=== PATIENT | female | born 1965 | race Two or more races ===

== ENCOUNTER → 2019-04-24 | Outpatient (CLI) | payer OTHER ==
[~2019-04-24] MED LIST: ATACAND; COUMADIN; GLIPIZIDE; HUMALOG100 UNIT/1; JANUMET; TRASODONE; TRICOR
== END | disposition home or self-care (01) ==
LOC: RAD 13:04
DX: M79.642 Pain in left hand (principal); M25.532 Pain in left wrist

== ENCOUNTER 2019-06-21 10:26 | Outpatient (CLI) | payer OTHER | END 2019-06-21 10:34 | disposition home or self-care (01) | LOC: RAD 10:26 | DX: M25.512 Pain in left shoulder (principal); S62.012D Displaced fracture of distal pole of navicular [scaphoid] bone of left wrist, subsequent encounter for fracture with routine healing; S62.12 Fracture of lunate [semilunar]; M79.671 Pain in right foot ==

== ENCOUNTER 2020-07-25 09:43 | Outpatient (CLI) | payer OTHER | END 2020-07-25 09:50 | disposition home or self-care (01) | LOC: RAD 09:43 | PROVIDERS: ATTEND Orthopaedic Surgery | DX: M85.842 Other specified disorders of bone density and structure, left hand (principal); M25.532 Pain in left wrist ==

== ENCOUNTER 2020-09-23 08:53 | Outpatient (CLI) | payer OTHER ==
[2020-09-23] MEDS ORDERED: HUMALOG MI100 UNIT/2 SUBCUTANEO (12:52)
[2020-09-23] MEDS ORDERED: SEROQUEL300 MG PO (12:53)
[2020-09-23] MEDS ORDERED: CLONAZEPAM2 MG PO (12:54)
[2020-09-23] MEDS ORDERED: RESTORIL30 M1 PO (12:54)
[2020-09-23] MEDS ORDERED: ARICEPT10 MG PO (12:55)
[2020-09-23] MEDS ORDERED: SINGULAIR 10MG10 MG PO (12:55)
[2020-09-23] MEDS ORDERED: CYMBALTA60 MG PO (12:56)
[2020-09-23] MEDS ORDERED: TRAZODONE HCL150 MG PO (12:56)
== END 2020-09-23 09:03 | disposition home or self-care (01) ==
LOC: LAB 08:53
PROVIDERS: ATTEND Orthopaedic Surgery
DX: D64.89 Other specified anemias (principal); E88.89 Other specified metabolic disorders; B96.29 Other Escherichia coli [E. coli] as the cause of diseases classified elsewhere; D68.8 Other specified coagulation defects; I10 Essential (primary) hypertension; N39.0 Urinary tract infection, site not specified; Z22.322 Carrier or suspected carrier of Methicillin resistant Staphylococcus aureus; Z76.89 Persons encountering health services in other specified circumstances; I49.8 Other specified cardiac arrhythmias

== ENCOUNTER 2020-09-27 09:17 | Outpatient (CLI) | payer OTHER ==
[~2020-09-27 09:17] MED LIST changes: +ARICEPT10 MG PO; +CLONAZEPAM2 MG PO; +CYMBALTA60 MG PO; +HUMALOG MI100 UNIT/2 SUBCUTANEO; +RESTORIL30 M1 PO; +SEROQUEL300 MG PO; +SINGULAIR 10MG10 MG PO; +TRAZODONE HCL150 MG PO
== END 2020-09-27 09:18 | disposition home or self-care (01) ==
LOC: LAB 09:17
PROVIDERS: ATTEND Internal Medicine
DX: E11.9 Type 2 diabetes mellitus without complications (principal)

== ENCOUNTER → 2020-10-03 09:08 | Outpatient (CLI) | payer OTHER | END | disposition home or self-care (01) | LOC: LAB 09:08 | PROVIDERS: ATTEND Internal Medicine | DX: N39.0 Urinary tract infection, site not specified (principal) ==

== ENCOUNTER → 2021-02-18 08:15 | Outpatient (CLI) | payer OTHER | END | disposition home or self-care (01) | LOC: LAB 08:15 | PROVIDERS: ATTEND Orthopaedic Surgery | DX: D68.8 Other specified coagulation defects (principal); N39.0 Urinary tract infection, site not specified; D64.9 Anemia, unspecified; E88.89 Other specified metabolic disorders; Z22.322 Carrier or suspected carrier of Methicillin resistant Staphylococcus aureus; E03.8 Other specified hypothyroidism; E11.8 Type 2 diabetes mellitus with unspecified complications; E55.9 Vitamin D deficiency, unspecified ==

== ENCOUNTER 2025-04-04 07:15 | Inpatient (IN) | payer OTHER ==
[~2025-04-04] VITALS: Ht 170.2 cm; Wt 102.5 kg
[2025-04-04] MEDS ORDERED: CLONAZEPAM2 MG PO (07:39)
[2025-04-04] MEDS ORDERED: KETOROLAC TROMETHAMINE 30 MG VIAL IV STA (08:07)
[2025-04-04] MEDS ORDERED: 0.9 % SODIUM CHLORIDE 1,000 ML IV STA (08:07)
[2025-04-04] MEDS ORDERED: MORPHINE SULFATE 4 MG/ML VIAL IV STA (08:08)
[2025-04-04] MEDS ORDERED: INSULIN REGULAR, HUMAN 1,000 UNIT/10 ML UNITS SUBCUTANEO STA (08:11)
[2025-04-04 08:57] LABS: BASO % 0.3 % (0.1-1.2); EOS # 0.02 (0.04-0.54); EOS % 0.2 % (0.7-7.0); LYMPH # 1.34 (1.18-3.74); LYMPH % 13.9 % (19.3-53.1); MEAN PLATELET VOLUME 11.10 fl (9.4-12.4); MONO # 1.30 (0.24-0.82); NEUT # 6.93 (1.56-6.13); NEUT % 71.7 % (34.0-71.1); RED CELL DISTRIBUTION WIDTH 13.1 % (11.6-14.4)
[2025-04-04 09:01] LABS: MONO % 13.5 % (4.7-12.5)
[2025-04-04 09:26] LABS: INR 1.18
[2025-04-04 09:31] LABS: ALT/SGPT 27.0 U/L (12-78); AST/SGOT 18.0 U/L (15-37); BILIRUBIN TOTAL 0.98 mg/dL (0.3-1.2); BUN CREA RATIO 12.0 (7.0-25.0); CREATININE SERUM 1.45 mg/dL (0.55-1.02); GFR 36.83; GLOBULINA 4.2 G/DL (2.4-3.5); OSMOLALITY SERUM 285.0 MOSM/KG (275-295)
[2025-04-04 09:32] LABS: GLUCOSE FASTING 329.0 mg/dL (65-100)
[2025-04-04 09:41] LABS: URINE APPEARANCE Turbid; URINE BILIRRUBIN Negative (NEGATIVE); URINE BLOOD Large; URINE COLOR Yellow; URINE KETONE 15 (NEGATIVE); URINE LEUKOCYTE Moderate; URINE NITRATE Negative; URINE PROTEIN 30 (NEGATIVE); URINE UROBILINOGEN 1.0 E.U./dl
[2025-04-04 09:46] LABS: URINE CAST 2.63 uL (0.0-1.40); URINE EPITHELIAL CELLS 34.3 uL (0.0-38.8); URINE WBC 634.4 uL (0.0-23.2)
[2025-04-04 09:57] LABS: URINE BACTERIA > 9821.5 uL (0.0-1933); URINE GLUCOSE 500 MG/DL (NEGATIVE); URINE RBC > 10558.9 uL (0.0-20.8)
[2025-04-04 10:10] LABS: COVID-19 AG NEGATIVE (NEGATIVE)
[2025-04-04] MEDS ORDERED: 0.9 % SODIUM CHLORIDE 1,000 ML IV SCH (18:15)
[2025-04-04] MEDS ORDERED: SIMVASTATIN 20 MG TABLET PO SCH (18:18)
[2025-04-04] MEDS ORDERED: CEFTRIAXONE SODIUM 2,000 MG in 0.9 % SODIUM CHLORIDE 100 ML IV SCH (18:18)
[2025-04-04] MEDS ORDERED: ACETAMINOPHEN 500 MG GEL..CAP PO PRN (18:30)
[2025-04-04] MEDS ORDERED: INSULIN LISPRO 1,000 UNIT/10 ML UNITS SUBCUTANEO PRN (18:30)
[2025-04-04] MEDS ORDERED: MORPHINE SULFATE 4 MG/ML CARTRIDGE IV PRN (18:30)
[2025-04-04] MEDS ORDERED: MORPHINE SULFATE 4 MG/ML CARTRIDGE IV ONE (18:30)
[2025-04-04] MEDS ORDERED: DEXTROSE 50 % IN WATER 0.5 G/ML DISP.SYRIN IV PRN (18:30)
[2025-04-05 03:30] VITALS: BP 131/65; O2SAT 97
[2025-04-05 08:00] VITALS: BP 150/84; O2SAT 95
[2025-04-05] MEDS ORDERED: CLONAZEPAM 1 MG TABLET PO SCH (09:00)
[2025-04-05] MEDS ORDERED: QUETIAPINE FUMARATE 100 MG TABLET PO SCH (09:00)
[2025-04-05 09:13] LABS: ALT/SGPT 54.0 U/L (12-78); AST/SGOT 47.0 U/L (15-37); BILIRUBIN TOTAL 0.78 mg/dL (0.3-1.2); BUN CREA RATIO 24.0 (7.0-25.0); CREATININE SERUM 1.02 mg/dL (0.55-1.02); GFR 55.28; GLOBULINA 3.6 G/DL (2.4-3.5); GLUCOSE FASTING 285.0 mg/dL (65-100); OSMOLALITY SERUM 290.0 MOSM/KG (275-295)
[2025-04-05] MEDS ORDERED: MORPHINE SULFATE 4 MG/ML CARTRIDGE IV STA (13:18)
[2025-04-05 15:18] LABS: INR 1.17
[2025-04-05 16:00] VITALS: BP 144/80; O2SAT 97
[2025-04-05] MEDS ORDERED: METOPROLOL SUCCINATE 25 MG TAB.SR.24H PO STA (17:44)
[2025-04-06] MEDS ORDERED: INSULIN LISPRO 1,000 UNIT/10 ML UNITS SUBCUTANEO ONE (07:41)
[2025-04-06] MEDS ORDERED: CEFAZOLIN SODIUM 1,000 MG VIAL ONE (07:41)
[2025-04-06] MEDS ORDERED: METOPROLOL SUCCINATE 25 MG TAB.SR.24H PO SCH (09:00)
[2025-04-06] MEDS ORDERED: CEFAZOLIN SODIUM 1,000 MG VIAL IV SCH (09:00)
[2025-04-06] MEDS ORDERED: PROMETHAZINE HCL 50 MG/ML AMPUL IM PRN (11:30)
[2025-04-06] MEDS ORDERED: ONDANSETRON HCL 2 MG/ML VIAL IV PRN (11:30)
[2025-04-06] MEDS ORDERED: ONDANSETRON 4 MG TAB.RAPDIS PO PRN (11:30)
[2025-04-06] MEDS ORDERED: SODIUM CHLORIDE 0.45 % 1,000 ML IV SCH (11:30)
[2025-04-06] MEDS ORDERED: TRAMADOL HCL 50 MG TABLET PO PRN (11:30)
[2025-04-06 17:08] VITALS: BP 133/69; O2SAT 94
[2025-04-06] MEDS ORDERED: INSULIN GLARGINE,HUM.REC.ANLOG 1,000 UNITS/10 ML UNITS SUBCUTANEO STA (21:29)
[2025-04-06] MEDS ORDERED: INSULIN GLARGINE,HUM.REC.ANLOG 1,000 UNITS/10 ML UNITS SUBCUTANEO ONE (22:00)
[2025-04-07 01:11] VITALS: BP 100/62; O2SAT 98
[2025-04-07 07:59] LABS: BASO % 0.5 % (0.1-1.2); EOS # 0.20 (0.04-0.54); EOS % 2.5 % (0.7-7.0); LYMPH # 1.83 (1.18-3.74); LYMPH % 22.6 % (19.3-53.1); MEAN PLATELET VOLUME 10.90 fl (9.4-12.4); MONO # 0.82 (0.24-0.82); MONO % 10.1 % (4.7-12.5); NEUT # 5.17 (1.56-6.13); NEUT % 63.9 % (34.0-71.1); RED CELL DISTRIBUTION WIDTH 12.5 % (11.6-14.4)
[2025-04-07] MEDS ORDERED: INSULIN LISPRO 1,000 UNIT/10 ML UNITS SUBCUTANEO SCH (08:00)
[2025-04-07] MEDS ORDERED: RIVAROXABAN 10 MG TAB PO SCH (09:00)
[2025-04-07 16:00] VITALS: BP 158/94; O2SAT 100
[2025-04-07] MEDS ORDERED: INSULIN GLARGINE,HUM.REC.ANLOG 1,000 UNITS/10 ML UNITS SUBCUTANEO SCH (21:00)
[2025-04-08 01:40] VITALS: BP 105/65; O2SAT 98
[2025-04-08 08:05] LABS: BASO % 0.6 % (0.1-1.2); EOS # 0.30 (0.04-0.54); EOS % 2.5 % (0.7-7.0); LYMPH # 3.40 (1.18-3.74); LYMPH % 28.0 % (19.3-53.1); MEAN PLATELET VOLUME 10.80 fl (9.4-12.4); MONO # 1.40 (0.24-0.82); MONO % 11.5 % (4.7-12.5); NEUT # 6.93 (1.56-6.13); NEUT % 57.1 % (34.0-71.1); RED CELL DISTRIBUTION WIDTH 13.0 % (11.6-14.4)
[2025-04-08 08:30] VITALS: BP 112/67; O2SAT 94
[2025-04-08 16:00] VITALS: BP 144/88; O2SAT 98
[2025-04-09 00:41] VITALS: BP 114/68; O2SAT 98
[2025-04-09 09:00] VITALS: BP 136/85; O2SAT 98
== END 2025-04-09 13:29 | disposition home or self-care (01) | DRG 481 ==
LOC: ER 07:15 → SURH 19:20 → SEC-K 19:20 → SURH 04-05 00:47
PROVIDERS: Orthopaedic Surgery; ADMIT Internal Medicine; ATTEND Internal Medicine
PROC: 0QS636Z Reposition Right Upper Femur with Intramedullary Internal Fixation Device, Percutaneous Approach (ICD-10-PCS; principal; 2025-04-06 11:30)
DX: S72.141A Displaced intertrochanteric fracture of right femur, initial encounter for closed fracture (principal); N17.9 Acute kidney failure, unspecified; N39.0 Urinary tract infection, site not specified; E11.9 Type 2 diabetes mellitus without complications; Z79.4 Long term (current) use of insulin; F31.9 Bipolar disorder, unspecified

== ENCOUNTER 2025-05-16 10:37 | Outpatient (CLI) | payer OTHER | END 2025-05-16 10:47 | disposition home or self-care (01) | LOC: RAD 10:37 | PROVIDERS: ATTEND Orthopaedic Surgery | DX: M25.561 Pain in right knee (principal); M25.551 Pain in right hip ==